=== PATIENT | male | born 1960 | race Caucasian/White ===

== ENCOUNTER → 2021-12-26 | Outpatient (REF) | LOC: M RAD 09:28 | PROVIDERS: ATTEND Internal Medicine | DX: M17.0 Bilateral primary osteoarthritis of knee (principal) ==

== ENCOUNTER 2024-11-27 09:41 | Emergency (ER) | payer OTHER, BC ==
[~2024-11-27] VITALS: Ht 175.3 cm; Wt 117.5 kg
[2024-11-27] MEDS ORDERED: CETI10CA2 PO (10:52)
[2024-11-27] MEDS ORDERED: GLIM2TAB29 (10:52)
[2024-11-27] MEDS ORDERED: LISI10TA22 PO (10:52)
[2024-11-27] MEDS ORDERED: ATOR80TA59 (10:52)
[2024-11-27] MEDS ORDERED: PROB250C PO (10:52)
[2024-11-27] MEDS ORDERED: TAMS1CAP17 (10:52)
[2024-11-27] MEDS ORDERED: METF-838 (10:52)
[2024-11-27] MEDS ORDERED: ASPI81CH33 PO (10:52)
[2024-11-27] MEDS ORDERED: CELE50CA17 PO (10:54)
[2024-11-27] MEDS ORDERED: ACET-861 PO (10:54)
[2024-11-27] MEDS ORDERED: OMEG10002 PO (10:54)
[2024-11-27] MEDS: ONDANSETRON 4MG 2ML VIAL IV ONE (11:12)
[2024-11-27] MEDS: NS (Normal Saline) 0.9% 1,000 ML IV ONE (11:12)
[2024-11-27 11:22] LABS: BASO # 0.0 10^3/uL (0.0-0.2); BASO % 0.3 % (0.0-1.0); EOS # 0.1 10^3/uL (0.0-0.5); EOS % 0.6 % (0.0-3.0); LYMPH # 0.7 10^3/uL (1.5-5.0); LYMPH % 5.0 % (24.0-44.0); MONO # 1.0 10^3/uL (0.0-0.8); MONO % 7.4 % (2.0-8.0); NEUTROPHILS # 12.1 10^3/uL (1.5-8.5); NEUTROPHILS % 86.3 % (36.0-66.0); PLATELET COUNT, AUTOMATED 330 10^3/uL (150-450)
[2024-11-27 11:55] LABS: ALT/SGPT 51 U/L (7.0-40); AST/SGOT 32 U/L (<34); CALCIUM LEVEL 9.9 MG/DL (8.3-10.6); CARBON DIOXIDE LEVEL 21 MMOL/L (20-31); CHLORIDE LEVEL 104 MMOL/L (98-107); CREATININE FOR GFR 0.88 MG/DL (0.70-1.30); GLOMERULAR FILTRATION RATE > 90.0 (>49); POTASSIUM SERUM 4.4 MMOL/L (3.5-5.1); SODIUM LEVEL 140 MMOL/L (136-145)
[2024-11-27 12:32] VITALS: BP 144/89
[2024-11-27 12:45] VITALS: O2SAT 98
[2024-11-27] MEDS ORDERED: ONDA-282 PO (12:46)
[2024-11-27 12:54] VITALS: TEMP 97.3
[2024-11-27] MEDS ORDERED: PROM25TA12 PO (16:12)
== END 2024-11-27 13:02 | disposition home or self-care (01) ==
LOC: M ED 09:41
DX: R11.2 Nausea with vomiting, unspecified (principal); R19.7 Diarrhea, unspecified; I10 Essential (primary) hypertension; G44.89 Other headache syndrome; E78.00 Pure hypercholesterolemia, unspecified; Z88.0 Allergy status to penicillin; Z79.1 Long term (current) use of non-steroidal anti-inflammatories (NSAID); Z79.82 Long term (current) use of aspirin; Z79.84 Long term (current) use of oral hypoglycemic drugs; Z79.899 Other long term (current) drug therapy
CPT/HCPCS: 80048; 80076; 83690; 85025; 87507; 93041; 96360; 99284; J2405